=== PATIENT | female | born 1950 | race Caucasian/White ===

== ENCOUNTER 2021-04-02 10:19 | Outpatient (CLI) | payer MEDICARE, SELFPAY ==
--- NOTE | ~2021-04-02 | MM_ITS ---
EXAMINATION: MM screening [facility] BI w janett HISTORY: Screening TECHNIQUE: Craniocaudal and mediolateral oblique 3-D tomosynthesis images were obtained and synthetic 2-D images were generated. CAD analysis was submitted and interpreted. COMPARISON: Comparison to multiple prior studies sequentially, with oldest reviewed study dated 02/15. BREAST PARENCHYMAL COMPOSITION: There are scattered areas of fibroglandular density. FINDINGS: There is no evidence of suspicious mass, calcification, or architectural distortion to sugg est malignancy in either breast. There has been no suspicious interval change. IMPRESSION: 1. No mammographic evidence of malignancy. 2. Recommend routine screening mammography in one year. BI-RADS Category 1: Negative Reviewed, dictated and finalized at location A.
== END 2021-04-02 10:20 | disposition home or self-care (01) ==
LOC: ANHIMG 10:22
PROVIDERS: PCP Nurse Practitioner Family; Visit Provider Family Medicine
DX: Z12.31 Encounter for screening mammogram for malignant neoplasm of breast (principal)
CPT/HCPCS: 77063; 77067

== ENCOUNTER 2022-12-17 09:06 | Outpatient (CLI) | payer MEDICARE, SELFPAY ==
[2022-12-17 17:16] LABS: Basophils Absolute Auto 0.1 K/mm3 (0.0-0.1); Basophils Percent Auto 1.3 % (0.2-1.2); Eosinophils Absolute Auto 0.2 K/mm3 (0-0.3); Eosinophils Percent Auto 3.8 % (0-4.4); Hematocrit 41.3 % (37.0-47.0); Hemoglobin 13.2 g/dL (12.0-15.0); Immature Granulocyte Absolute 0.01 K/mm3 (0.00-0.031); Immature Granulocyte Percent A 0.2 % (0-0.5); Lymphocytes Absolute Auto 1.71 K/mm3 (0.9-3.2); Lymphocytes Percent Auto 32.4 % (18.3-44.2); Mean Corpuscular Hemoglobin 31.6 pg (26-34); Mean Corpuscular Volume 98.8 fl (80-100); Mean Platelet Volume 9.4 fl (7.4-10.4); Monocytes Absolute Auto 0.6 K/mm3 (0.1-0.6); Monocytes Percent Auto 11.6 % (2.6-8.5); Neutrophils Absolute Auto 2.7 K/mm3 (1.3-6.7); Neutrophils Percent Auto 50.7 % (45.5-73.1); Platelet Count Result 292 k/mm3 (150-375); Red Blood Count 4.18 M/mm3 (4.2-5.4); Red Cell Distribution Width 14.6 % (11.5-14.5); White Blood Count 5.3 K/mm3 (4.5-10.0)
[2022-12-17 22:26] LABS: LDL Cholesterol Direct 128 mg/dL
[2022-12-17 22:55] LABS: Vitamin D 25 Hydroxy 38.4 ng/mL
[2022-12-17 23:36] LABS: Alanine Aminotransferase 24 U/L (6-35); Albumin Level 4.3 g/dL (3.5-5.1); Alkaline Phosphatase 69 U/L (38-126); Anion Gap 6 mmol/L (8-16); Aspartate Amino Transferase 40 U/L (14-36); Bilirubin,Total 0.6 mg/dL (0.2-1.3); Blood Urea Nitrogen 15 mg/dL (7-17); Calcium 8.7 mg/dL (8.4-10.2); Carbon Dioxide 29 mmol/L (22-30); Chloride 99 mmol/L (98-107); Cholesterol 264 mg/dL (0-200); Estimated Glomerular Filt Rate > 60; Glucose 61 mg/dL (65-110); HDL Direct 98 mg/dL; Potassium 5.1 mmol/L (3.4-5.0); Sodium 134 mmol/L (137-145); Triglycerides 64 mg/dL (<150)
== END 2022-12-17 09:07 | disposition home or self-care (01) ==
LOC: ANHGOSHLAB 09:10
PROVIDERS: PCP Family Medicine; Visit Provider Family Medicine
DX: E78.5 Hyperlipidemia, unspecified (principal); L60.3 Nail dystrophy; E55.9 Vitamin D deficiency, unspecified; E53.8 Deficiency of other specified B group vitamins; Z13.29 Encounter for screening for other suspected endocrine disorder
CPT/HCPCS: 36415; 80053; 80061; 82306; 82607; 84443; 85025

== ENCOUNTER 2023-01-25 08:05 | Outpatient (CLI) | payer MEDICARE, SELFPAY ==
[2023-01-25 21:07] LABS: Alanine Aminotransferase 22 U/L (6-35); Albumin Level 4.2 g/dL (3.5-5.1); Alkaline Phosphatase 61 U/L (38-126); Anion Gap 7 mmol/L (8-16); Aspartate Amino Transferase 38 U/L (14-36); Bilirubin,Total 0.6 mg/dL (0.2-1.3); Blood Urea Nitrogen 14 mg/dL (7-17); Calcium 8.9 mg/dL (8.4-10.2); Carbon Dioxide 28 mmol/L (22-30); Chloride 99 mmol/L (98-107); Estimated Glomerular Filt Rate > 60; Glucose 58 mg/dL (65-110); Potassium 4.3 mmol/L (3.4-5.0); Sodium 134 mmol/L (137-145)
== END 2023-01-25 08:06 | disposition home or self-care (01) ==
LOC: ANHGOSHLAB 08:07
PROVIDERS: PCP Family Medicine; Visit Provider Family Medicine
DX: E87.5 Hyperkalemia (principal)
CPT/HCPCS: 36415; 80053

== ENCOUNTER 2023-02-22 08:22 | Outpatient (CLI) | payer MEDICARE, SELFPAY ==
[2023-02-22 11:56] LABS: Glucose 82 mg/dL (65-110)
[2023-02-26 14:15] LABS: Adrenocorticotropic Hormone 24 pg/mL (6-50)
== END 2023-02-22 08:23 | disposition home or self-care (01) ==
LOC: ANHGOSHLAB 08:23
PROVIDERS: PCP Family Medicine; Visit Provider Internal Medicine
DX: E16.2 Hypoglycemia, unspecified (principal)
CPT/HCPCS: 36415; 82024; 82533; 82947; 84439

== ENCOUNTER 2023-08-30 07:50 | Outpatient (CLI) | payer MEDICARE, SELFPAY ==
--- NOTE | ~2023-08-30 | DEXA_ITS ---
Bone Density Report Name: BERKLEY PERRIN Age: 72 Sex: Female Ethnicity: White Date of : 1950 Indication: postmenopausal osteoporosis; parental hip fracture; height loss; cancer; Referring Provider: LUIZ CARRION Study: Bone densitometry was performed. Exam Date: August 30, 2023 Accession number: [id number] Bone Density: Region BMD T-score Z-score Classification AP Spine(L1-L4) 0.585 -4.2 -2.0 Osteoporosis Femoral Neck (Left) 0.592 -2.3 -0.4 Osteopenia Total Hip (Left) 0.677 -2.2 -0.6 Osteopenia Femoral Neck (Right) 0.542 -2.8 -0.9 Osteoporosis Total Hip (Right) 0.751 -1.6 0.0 Osteopenia Total Hip Mean 0.714 -1.9 -0.3 Osteopenia World Health Organization criteria for BMD impression classify patients as: Normal (T-score at or above -1.0), Osteopenia (T-score between -1.0 and -2.5), or Osteoporosis (T-score at or below -2.5). 10-year Fracture Risk: FRAX not reported because: Some T-score for Spine Total or Hip Total or Femoral Neck at or below -2.5 Previous Exams: Region Exam Age BMD T-score BMD Change BMD Change Date g/cm2 vs Baseline vs Previous AP Spine (L1-L4) 08/30/2023 72 0.585 -4.2 -0.097 (-14.2% -0.097 (-14.2% 11/15/2017 67 0.682 -3.3 Total Hip(Left) 08/30/2023 72 0.677 -2.2 -0.081 (-10.7% -0.081 (-10.7% 11/15/2017 67 0.757 -1.5 Total Hip(Right) 08/30/2023 72 0.751 -1.6 -0.020 (-2.5%) -0.020 (-2.5%) 11/15/2017 67 0.770 -1.4 *Denotes significance at 95% confidence level, LSC for AP Spine = 0.022 g/cm2, LSC for Total Hip = 0.027 g/cm2 Clinical Information Provided by Patient: Parent has had a hip fracture Has used the following medications: Vitamin D, Calcium Has the following medical conditions: Cancer Patient maximum height was 65.5 Menopause Age: 51 Drinks caffeinated beverages Onset of menses at age 14 Number of children 3 Impression: The patient has osteoporosis, based on the Total Spine T-score. The patient has risk factors, including: parental hip fracture. The BMD for the AP Spine (L1-L4) decreased, changing by -14.2% since the last DXA exam. The BMD for the Total Hip(Left) decreased, changing by -10.7% since the last DXA exam. Discussion: HIGH RISK OF FRACTURE. BONE DENSITY IS UNDESIRABLY LOW AT ONE OR MORE SKELETAL SITES, CONSISTENT WITH OSTEOPOROSIS. ALSO, BONE DENSITY IS LOWER THAN EXPECTED FOR AGE AND SEX AT ONE OR MORE SKELETAL SITES; RECOMMEND A DILIGENT SEARCH FOR SECOND
--- NOTE | ~2023-08-30 | MM_ITS ---
EXAMINATION: MM screening [facility] HISTORY: Screening TECHNIQUE: Craniocaudal and mediolateral oblique 3-D tomosynthesis images were obtained and synthetic 2-D images were generated. CAD analysis was submitted and interpreted. COMPARISON: Comparison to multiple prior studies sequentially, with oldest reviewed study dated [place] to multiple prior studies sequentially, with oldest reviewed study dated 10/07/2017. . BREAST PARENCHYMAL COMPOSITION: Not dense: There are scattered areas of fibroglandular density. FINDINGS: There is no evidence of suspicious mass, calcification, or architectural distortion to sugg est malignancy in either breast. There has been no suspicious interval change. IMPRESSION: 1. No mammographic evidence of malignancy. 2. Recommend routine screening mammography in one year. BI-RADS Category 1: Negative Reviewed, dictated and finalized at location A. [employer]
== END 2023-08-30 07:51 | disposition home or self-care (01) ==
LOC: ANHIMG 07:55
PROVIDERS: PCP Family Medicine; Visit Provider Family Medicine
DX: Z12.31 Encounter for screening mammogram for malignant neoplasm of breast (principal); Z78.0 Asymptomatic menopausal state; M81.0 Age-related osteoporosis without current pathological fracture; M85.852 Other specified disorders of bone density and structure, left thigh; M85.851 Other specified disorders of bone density and structure, right thigh
CPT/HCPCS: 77063; 77067; 77080

== ENCOUNTER 2024-01-28 08:13 | Outpatient (CLI) | payer MEDICARE, SELFPAY ==
[2024-01-28 18:58] LABS: Hematocrit 44.2 % (37.0-47.0); Hemoglobin 14.6 g/dL (12.0-15.0); Mean Corpuscular Hemoglobin 32.4 pg (26-34); Mean Platelet Volume 9.6 fl (7.4-10.4); Platelet Count Result 276 k/mm3 (150-375); Red Blood Count 4.51 M/mm3 (4.2-5.4); Red Cell Distribution Width 14.2 % (11.5-14.5); White Blood Count 5.1 K/mm3 (4.5-10.0)
[2024-01-28 19:05] LABS: Alanine Aminotransferase 22 U/L (6-35); Albumin Level 4.3 g/dL (3.5-5.1); Alkaline Phosphatase 74 U/L (38-126); Anion Gap 7 mmol/L (4-12); Aspartate Amino Transferase 41 U/L (14-36); Bilirubin,Total 0.5 mg/dL (0.2-1.3); Blood Urea Nitrogen 18 mg/dL (7-17); Calcium 9.3 mg/dL (8.4-10.2); Carbon Dioxide 30 mmol/L (22-30); Chloride 97 mmol/L (98-107); Cholesterol 275 mg/dL (0-200); Estimated Glomerular Filt Rate 55; Glucose 93 mg/dL (65-110); HDL Direct 96 mg/dL; Potassium 4.8 mmol/L (3.4-5.0); Sodium 134 mmol/L (137-145); Triglycerides 66 mg/dL (<150)
[2024-01-28 19:15] LABS: LDL Cholesterol Direct 137 mg/dL
[2024-01-28 19:37] LABS: Vitamin D 25 Hydroxy 45.4 ng/mL
[2024-01-28 19:43] LABS: Hemoglobin A1C 5.9 % (<5.7)
[2024-01-28 19:58] LABS: Hepatitis C Virus Antibody Negative (Negative)
== END 2024-01-28 08:14 | disposition home or self-care (01) ==
PROVIDERS: PCP Family Medicine; Visit Provider Nurse Practitioner
DX: E78.5 Hyperlipidemia, unspecified (principal); E55.9 Vitamin D deficiency, unspecified; E16.2 Hypoglycemia, unspecified; Z11.59 Encounter for screening for other viral diseases
CPT/HCPCS: 36415; 80053; 80061; 82306; 83036; 84443; 85027; 86803